=== PATIENT | female | born 1975 | race Caucasian/White ===

== ENCOUNTER 2020-11-14 12:17 | Emergency (ER) | payer SELFPAY ==
[2020-11-14] MEDS ORDERED: AMOXicillin 250 MG CAP ONE (12:29)
[2020-11-14] MEDS ORDERED: Ibuprofen 800 MG TAB ONE (12:29)
[2020-11-14] MEDS ORDERED: HYDROcodone/Acetaminophen 5/325 mg Tablet ONE (12:29)
== END 2020-11-14 12:48 | disposition home or self-care (01) ==
LOC: MADERS 12:17
DX: K04.7 Periapical abscess without sinus (principal); K02.9 Dental caries, unspecified; F17.210 Nicotine dependence, cigarettes, uncomplicated
CPT/HCPCS: 99283